=== PATIENT | female | born 2000 | race Caucasian/White ===

== ENCOUNTER → 2019-07-13 | Outpatient (CLI) | payer OTHER ==
--- NOTE | 2019-07-13 12:44 | KCIC ---
EXAM: Left ribs, 3 views; left shoulder, 3 views. HISTORY: Pain. COMPARISON: None. FINDINGS: 3 views of the left ribs and left shoulder obtained. No displaced fracture is seen. The left lung is clear. The heart is normal in size. IMPRESSION: No acute osseous finding. Electronically signed by: Karolyn Ramirez MD (07/13/2019 12:41 PM) [facility]
--- NOTE | 2019-07-13 12:44 | KCIC ---
EXAM: Left ribs, 3 views; left shoulder, 3 views. HISTORY: Pain. COMPARISON: None. FINDINGS: 3 views of the left ribs and left shoulder obtained. No displaced fracture is seen. The left lung is clear. The heart is normal in size. IMPRESSION: No acute osseous finding. Electronically signed by: Karolyn Ramirez MD (07/13/2019 12:41 PM) [facility]
== END | disposition home or self-care (01) ==
LOC: KCIC 10:31
PROVIDERS: ATTEND Internal Medicine
DX: R07.81 Pleurodynia (principal); M25.512 Pain in left shoulder
CPT/HCPCS: 71100; 73030